=== PATIENT | female | born 2000 | race Hispanic/Latino ===

== ENCOUNTER 2024-09-16 22:55 | Emergency (ER) | payer SELFPAY, OTHER ==
--- OUTSIDE RECORDS SUMMARY | 2024-09-16 22:58 | XMS REPORT | Continuity of Care Document ---
Author Name Unknown Address [address] [facility] [address]. [address] [place] [address] [facility] thconnect Address [address] [facility]. [address] [place] [address] Care Team Providers Care Cigar Wrapper Tender Automatic Name Role Phone DR ZACH SIEGEL Primary Care Physician Unavailsarah GODINEZ, DR JUSTICE Attending Clinician Unavailable HERBERT, DR JUSTICE Attending Clinician Unavailable ARCHIE, DR JOSE Franco Attending Clinician Unavail able ARCHIE, DR JOSE Franco Attending Clinician Unavail able SHOSHANA QUESADA Attending Clinician Unavailable [facility] Attending Clinician Unavail able MARIAN, DR MURRAY Attending Clinician Unavailable NATALY, DR TARSHA DELATORRE Attending Clinician Unav luis e CARPENTER, DR HINES Attending Clinician Unavailable GIACOMO, DR PARK Attending Clinician Unavailable HERBERT, DR JUSTICE Admitting Clinician Unavailable ARCHIE, DR JOSE Franco Admitting Clinician Unavail able SHOSHANA QUESADA Admitting Clinician Unavailable [facility] Admitting Clinician Unavail able MARIAN, DR MURRAY Admitting Clinician Unavailable NATALY, DR TARSHA DELATORRE Admitting Clinician Unav luis e CARPENTER, DR HINES Admitting Clinician Unavailable GIACOMO, DR PARK Admitting Clinician Unavailable Payers Payer Name Policy Type Policy Number Effective Date Expirati on Date Source [id number] 2023 00:00:00 [id number] 2023 00:00:00 [place] [id number] 2014 00:00:00 Allergies, Adverse Reactions, Alerts Allergy Name Allergy Type Status Severity Reaction(s) Onset Date Inactive Date Treating Clinician Comments Source No Known Drug Allergie s DA Active [facility] Social History Smoking Status Start Date Stop Date Source Never Smoker [facility] Vital Signs Vital Name Observation Time Observation Value Comments S ource Height 2023-04-13 10:42:00 167.64 CM Weight 2023-04-13 10:42:00 80.6 KG Height 2023-05-02 20:35:00 170.18 CM Weight 2023-05-02 20:35:00 75 KG Height 2023-05-02 20:35:00 170.18 CM Weight 2023-05-02 20:35:00 75 KG Height 2023-04-13 10:42:00 167.64 CM Weight 2023-04-13 10:42:00 80.6 KG Height 2022-10-04 20:00:00 165.1 CM Weight 2022-10-04 20:00:00 68.94 KG Height 2022-10-04 20:00:00 165.1 CM Weight 2022-10-04 20:00:00 68.94 KG Height 2022-09-13 00:00:00 65 [in_i] [facility] BMI (Body Mass Index) 2022-09-13 00:00:00 26 kg/m2 [facility] BP Systolic 2022-09-13 00:00:00 115 mm[Hg] [facility] Body Weight 2022-09-13 00:00:00 2498 [oz_av] [facility] BP Diastolic 2022-09-13 00:00:00 71 mm[Hg] [facility] Height 2021-01-08 21:49:00 162.56 CM Weight 2021-01-08 21:49:00 71.98 KG Procedures Procedure Date / Time Performed Performing Clinicia n Source DELIVERY PRODUCTS OF CONCEPTION EXT 2023-04-13 00:00:00 [facility] REPAIR ANAL SPHINCTER OPEN APPROACH 2023-04-13 00:00:00 [facility] Plan of Care Planned Activity Planned Date Details Comments Source Diagnostic Test Pending 2022-09-13 00:00:00 beta -HCG, quantitative, serum or plasma [code = beta-HCG, quantitative, serum or plasma] [facility] Encounters Start Date/Time End Date/Time Encounter Type Admission Type Attending Clinicians Care Facility Care Department Encounter ID Source 2023-04-21 00:00:00 Inpatient RESHMA TORO [facility] [place] [id number] [facility] 2023-04-13 09:47:00 Inpatient RESHMA TORO CHUWAMEGAN [facility] [place] [id number] [facility] 2023-05-02 20:37:00 2023-05-02 22:32:00 Emergency E JOSE ALMANZA DAVID [facility] ECC [id number] [facility] 2023-05-02 20:37:00 2023-05-02 20:37:00 Emergency E [facility] [id number] [facility] 2023-04-13 09:47:00 2023-04-15 15:05:00 Inpatient RESHMA TORO CHUWAMEGAN [facility] [place] [id number] [facility] 2022-10-04 19:45:00 2022-10-04 22:18:00 Emergency E SHOSHANA QUESADA [facility] [id number] [facility] 2022-10-04 19:45:00 2022-10-04 22:18:00 Emergency E SHOSHANA QUESADA [facility] [id number] [facility] 2022-09-15 00:00:00 2022-09-15 00:00:00 [facility] [id number] [facility] 2022-09-13 19:43:00 2022-09-13 22:36:00 Emergency E TREVOR FONSECA [facility] [id number] [facility] 2022-09-13 00:00:00 2022-09-13 00:00:00 Outpatient [facility] In[facility] [id number] [facility] 2022-09-13 00:00:00 2022-09-13 00:00:00 KALPANA Evans: [address] [id number] , Ph. [facility] - [facility]_Need ines Office [id number] [facility] 2021-01-08 21:41:00 2021-01-08 22:06:00 Emergency E TARSHA INGRAM [facility] [id number] [facility] 2019-03-11 08:46:00 2019-03-11 23:59:00 Outpatient DONNY SMITH [facility] RAD [id number] [facility] 2019-01-29 09:29:00 2019-01-29 10:41:00 Emergency E XAVIER GOODEN [facility] [id number] [facility] Results Test Description Test Time Test Comments Results Result Co mments Source HEPATITIS C ANTIBODY *WW*2023-04-14 04:07:00* Test Item Value Reference Range Interpretation Comme nts HCAB (test code = HCAB) NON-REACTIVE NON-REACTIVE SARS-CoV (RAPID ANTIGEN) WW2023-04-13 12:08:00* Test Item Value Reference Range Interpretation Comme nts SARS-CoV (ANTIGEN) (test code = COVAG) NEGATIVE NEGATIVE COVID AG (test code = COVAGC) This test has been marketed under the FDA Emergency Use Authorization (EUA) to meet challenges of the COVID-19 pandemic. The validation standards normally enforced by the FDA and the [employer] of the [employer] [employer] (CAP) are more stringent than those required for this test. Therefore, the result should be interpreted with caution and close attention to other clinical and epidemiological data HIV *WW*2023-04-13 12:04:00* Test Item Value Reference Range Interpretation Comme nts HIV-1,2 Ab \T\ p24 Ag (test code = CHIV) NON-REACTIVE NON-REACTIVE SYPHILIS SCREENING WW2023-04-13 11:55:00* Test Item Value Reference Range Interpretation Comme nts T PALLIDUM AB (test code = SYPHINT) NON-REACTIVE NON-REACTIVE SYPHC (test code = SYPHC) RPR test has been updated to Treponemal Immunoassay. Interpretation of results is similar RUBELLA AB IGG WW2023-04-13 11:54:00* Test Item Value Reference Range Interpretation Comme nts RUB AB IGG INTERP (test code = RBABINT) IMMUNE NON-IMMUNE A HEPATITIS B SURFACE ANTIGEN 2023-04-13 11:51:00* Test Item Value Reference Range Interpretation Comme nts HBSAG (test code = WHBSAG) NON-REACTIVE NON-REACTIVE URINALYSIS WITH MICRO 2023-04-13 11:42:00* Test Item Value Reference Range Interpretation Comme nts COLOR (test code = COLU) YELLOW YELLOW CLARITY (test code = CLA) SLT HAZY CLEAR A GLUCOSE UR (test code = UA GLUCOSE) NEGATIVE NEGATIVE BILI UR (test code = BILE) NEGATIVE NEGATIVE KETONES UR (test code = YELENA) TRACE NEGATIVE A SP GRAVITY (test code = SPGR) 1.020 1.005-1.030 PH UR (test code = PH) 5.5 4.5-8.0 PROTEIN UR (test code = PU) TRACE NEGATIVE A UROBIL UR (test code = UROQ) 1.0 EU/dL 0.2-1.0 NITRITE UR (test code = NITRITE) NEGATIVE NEGATIVE BLOOD UR (test code = UA BLOOD) 1+ NEGATIVE A LEUK ES UR (test code = LEUK) 2+ NEGATIVE A WBC UR (test code = UWBC) 8 /HPF 0-5 H RBC UR (test code = URBC) 1 /HPF 0-2 EPITH UR (test code = UEPC) FEW /LPF FEW BACTERIA UR (test code = UBACT) FEW /HPF NONE A CAST UR (test code = CAST) /LPF NONE CRYSTAL UR (test code = CRYU) / LPF NONE MUCUS UR (test code = MUC) / HPF NONE AMORPH UR (test code = KYREE) / HPF NONE TRICH UR (test code = UTRICH) /HPF NONE YEAST UR (test code = UY) /HPF NONE SPERM UR (test code = USPERM) /HPF NONE FIBRINOGEN QUANTITATIVE 2023-04-13 11:41:00* Test Item Value Reference Range Interpretation Comme nts FIBRINOGEN (test code = FIB) 833 mg/dL 260-480 H BASIC METABOLIC PANEL 2023-04-13 11:34:00* Test Item Value Reference Range Interpretation Comme nts GLUCOSE (test code = 06D) 95 mg/dL 75-100 SODIUM (test code = 01A) 137 mmol/L 136-145 POTASSIUM (test code = 01B) 4.2 mmol/L 3.6-5.1 CHLORIDE (test code = 04A) 104 mmol/L 98-107 CO2 (test code = 02A) 21 mmol/L 20-31 ANION GAP (test code = ANG) 16.2 mmol/L BUN (test code = 05D) 8 mg/dL 9-23 L CREATININE (test code = 03E) 0.6 mg/dL 0.6-1.0 GFR (test code = GFR) 131 mL/min/1.73m\S\2 >=90 GFR (test code = GFRAA) 152 mL/min/1.73m\S\2 >=90 EGFR (test code = EGFR) eGFR BY CKD-EPI CALCULATION IS NOT RECOMMENDED FOR PATIENTS UNDER 18 YEARS OF AGE. BUN/CREA (test code = BCR) 13 12-20 CALCIUM (test code = 09D) 9.5 mg/dL 8.3-10.6 CBC (INCLUDES AUTOMATED DIFFERENTIAL)*[id number] 11:21:00* Test Item Value Reference Range Interpretation Comme nts WBC (test code = WBC) 11.5 10\S\3/uL 4.5-13.0 RBC (test code = RBC) 4.25 10\S\6/uL 4.30-5.70 L HGB (test code = HBG) 11.3 g/dL 12.0-15.5 L HCT (test code = HCT) 36.2 % 35.0-44.0 MCV (test code = MCV) 85.2 fL 81.0-99.0 MCH (test code = MCH) 26.6 pg 27.0-31.0 L MCHC (test code = MCHC) 31.2 g/dL 32.0-36.0 L RDW (test code = RDW) 15.4 % 11.5-14.5 H PLT (test code = PLT) 179 10\S\3/uL 130-400 MPV (test code = MPV) 12.8 fL 9.4-12.4 H NEUTROP # (test code = NE#) 9.9 10\S\3/uL 1.6-8.0 H LYMPH # (test code = LY#) 0.9 10\S\3/uL 1.1-3.5 L MONOCYTE # (test code = MO#) 0.6 10\S\3/uL 0.0-1.1 EOSINOPH # (test code = EO#) 0.0 10\S\3/uL 0.0-0.7 BASOPHIL # (test code = BA#) 0.0 10\S\3/uL 0.0-0.3 IG # (test code = IG#) 0.04 10\S\3/uL 0.00-0.06 NRBC # (test code = NRBC#) 0.00 10\S\3/uL 0.00-0.01 NEUTROPH % (test code = NE%) 86.1 % 35.0-73.0 H LYMPH % (test code = LY%) 7.9 % 20.0-55.0 L MONO % (test code = MO%) 5.2 % 2.5-10.0 EOSINOPH % (test code = EO%) 0.2 % 0.0-5.0 BASOPHIL % (test code = BA%) 0.3 % 0.0-2.0 IG % (test code = IG%) 0.3 % 0.0-0.8 NRBC% (test code = NRBC%) 0.0 % 0.0-0.2 MANDIFF (test code = WMDIFF) NO NO RBC MORPH (test code = WRBCMOR) NORMAL U/S <14 [id number] 22:04:54 [facility] CENTERName: HARVINDER SALGADO : 2000 Sex: FTRANSABDOMINAL PELVIC ULTRASOUNDLOCATION: [id number]: Abnormal vaginal bleeding.TECHNIQUE: Transabdominal sonography of the pelvis was performed at 9:56 PM. Correlation is made to a prior exam from September 13, 2022.FINDINGS: The urinary bladder is unremarkable. The single live intrauterine fetus is again noted with a heart rate of 185 bpm. Estimated gestational age by crown-rump length measurement is 11 weeks 1 day. Now identified is a subchorionic hemorrhage that measures 3 x 1 cm. It causes no obviouscomplication at this time but close surveillance is recommended. The gestation and uterus are otherwise unremarkable.Neither ovary is identified due to overlying bowel gas shadowing. No obvious free fluid is seen in the pelvis.IMPRESSION: Single live intrauterine fetus at 11 weeks 1 day gestation. Subchorionic hemorrhage is now present without obvious compromise to the gestation at this time but close surveillance is recommended. No other obvious acute findings are seen.Electronically signed by: Rome Dykes MD 10/04/2022 10:04 PM CDT [id number] 22:03:00* Test Item Value Reference Range Interpretation Comme nts COLOR (test code = COLU) YELLOW YELLOW CLARITY (test code = CLA) CLEAR CLEAR GLUCOSE UR (test code = UA GLUCOSE) NEGATIVE NEGATIVE BILI UR (test code = BILE) NEGATIVE NEGATIVE KETONES UR (test code = YELENA) NEGATIVE NEGATIVE SP GRAVITY (test code = SPGR) 1.008 1.005-1.030 PH UR (test code = PH) 6.0 4.5-8.0 PROTEIN UR (test code = PU) NEGATIVE NEGATIVE UROBIL UR (test code = UROQ) 0.2 EU/dL 0.2-1.0 NITRITE UR (test code = NITRITE) NEGATIVE NEGATIVE BLOOD UR (test code = UA BLOOD) NEGATIVE NEGATIVE LEUK ES UR (test code = LEUK) NEGATIVE NEGATIVE URINE [id number] 22:01:00* Test Item Value Reference Range Interpretation Comme nts PREG UR (test code = PGU) POSITIVE NEGATIVE A BETA HCG QUANTITATIVE [id number] 21:50:00* Test Item Value Reference Range Interpretation Comme nts BHCG QUANT (test code = A17) 183877.60 mIU/mL BHCGQ (test code = BHCQ) QUANTITATIVE BHCG RESULT INTERPRETATION --- APPROXIMATE APPROXIMATE GESTATIONAL AGE HCG RANGE (WEEKS) (mIU/mL) - 0.2 - 1 5 - 50 1 - 2 50 - 500 2 - 3 100 - 5,000 3 - 4 500 - 10,000 4 - 5 1,000 - 50,000 5 - 6 10,000 - 100,000 6 - 8 15,000 - 200,000 8 - 12 10,000 - 100,000 --- PRO TIME AND [id number] 21:06:00* Test Item Value Reference Range Interpretation [facility] PT (test code = TT) 11.0 s 9.8-13.6 INR (test code = INR) 1.0 INRH (test code = INRH) SUGGESTED THERAPEUTIC RANGE FOR INR: 2.5 - 3.5 For Patients with Prosthetic Valves or Patients with recurrent Thromboembolic Events 2.0 - 3.0 For Most Other Applications PTT (test code = PTT) 29.2 s 20.2-38.0 PTTH (test code = PTTH) To monitor the effectiveness of heparin, we offer the Anti-Xa (Heparin Assay). It can be used for either unfractionated or LMW Heparin. Order Code is ANTI-XA COMPREHENSIVE METABOLIC [id number] 21:06:00* Test Item Value Reference Range Interpretation Comme [facility] GLUCOSE (test code = 06D) 79 mg/dL 75-100 SODIUM (test code = 01A) 137 mmol/L 136-145 POTASSIUM (test code = 01B) 3.7 mmol/L 3.6-5.1 CHLORIDE (test code = 04A) 105 mmol/L 98-107 CO2 (test code = 02A) 24 mmol/L 20-31 ANION GAP (test code = ANG) 11.8 mmol/L BUN (test code = 05D) 7 mg/dL 9-23 L CREATININE (test code = 03E) 0.6 mg/dL 0.6-1.0 GFR (test code = GFR) 135 mL/min/1.73m\S\2 See_Comment [Automated message] The system which generated this result transmitted reference range: >=90. The reference range was not used to interpret this result as normal/abnormal. GFR (test code = GFRAA) 157 mL/min/1.73m\S\2 See_Comment [Automated message] The system which generated this result transmitted reference range: >=90. The reference range was not used to interpret this result as normal/abnormal. EGFR (test code = EGFR) eGFR BY CKD-EPI CALCULATION IS NOT RECOMMENDED FOR PATIENTS UNDER 18 YEARS OF AGE. BUN/CREA (test code = BCR) 13 12-20 CALCIUM (test code = 09D) 9.4 mg/dL 8.3-10.6 BILI TOTAL (test code = 11A) 0.2 mg/dL 0.2-1.0 PROTEIN (test code = 07D) 7.2 g/dL 5.7-8.2 ALBUMIN (test code = 08D) 4.7 g/dL 3.2-4.8 GLOBULIN (test code = GLB) 2.5 g/dL 1.5-3.8 ALB/GLOB (test code = AGRR) 1.9 1.0-2.6 ALK PHOS (test code = 35A) 53 IU/L 46-116 AST (test code = 30A) 15 IU/L See_Comment [Automated message] The system which generated this result transmitted reference range: <=33. The reference range was not used to interpret this result as normal/abnormal. ALT (test code = 31A) 9 IU/L 10-49 L [id number] 21:06:00* Test Item Value Reference Range Interpretation Comme nts MAGNESIUM (test code = 48A) 2.1 mg/dL 1.6-2.6 CBC (INCLUDES AUTOMATED DIFFERENTIAL)2022-10-04 20:55:00* Test Item Value Reference Range Interpretation Comme nts WBC (test code = WBC) 7.7 10\S\3/uL 4.5-13.0 RBC (test code = RBC) 4.30 10\S\6/uL 4.30-5.70 HGB (test code = HBG) 12.8 g/dL 12.0-15.5 HCT (test code = HCT) 37.3 % 35.0-44.0 MCV (test code = MCV) 86.7 fL 81.0-99.0 MCH (test code = MCH) 29.8 pg 27.0-31.0 MCHC (test code = MCHC) 34.3 g/dL 32.0-36.0 RDW (test code = RDW) 13.7 % 11.5-14.5 PLT (test code = PLT) 233 10\S\3/uL 130-400 MPV (test code = MPV) 11.1 fL 9.4-12.4 NEUTROP # (test code = NE#) 4.9 10\S\3/uL 1.6-8.0 LYMPH # (test code = LY#) 1.9 10\S\3/uL 1.1-3.5 MONOCYTE # (test code = MO#) 0.6 10\S\3/uL 0.0-1.1 EOSINOPH # (test code = EO#) 0.2 10\S\3/uL 0.0-0.7 BASOPHIL # (test code = BA#) 0.0 10\S\3/uL 0.0-0.3 IG # (test code = IG#) 0.02 10\S\3/uL 0.00-0.06 NRBC # (test code = NRBC#) 0.00 10\S\3/uL 0.00-0.01 NEUTROPH % (test code = NE%) 63.3 % 35.0-73.0 LYMPH % (test code = LY%) 25.1 % 20.0-55.0 MONO % (test code = MO%) 7.9 % 2.5-10.0 EOSINOPH % (test code = EO%) 2.9 % 0.0-5.0 BASOPHIL % (test code = BA%) 0.5 % 0.0-2.0 IG % (test code = IG%) 0.3 % 0.0-0.8 NRBC% (test code = NRBC%) 0.0 % 0.0-0.2 MANDIFF (test code = MDIFF) NO RBC MORPH (test code = RBCMOR) NORMAL BETA HCG QUANTITATIVE [id number] 23:27:00* Test Item Value Reference Range Interpretation Comme nts BHCG QUANT (test code = A17) >841856.00 mIU/mL BHCGQ (test code = BHCQ) QUANTITATIVE BHCG RESULT INTERPRETATION --- APPROXIMATE APPROXIMATE GESTATIONAL AGE HCG RANGE (WEEKS) (mIU/mL) - 0.2 - 1 5 - 50 1 - 2 50 - 500 2 - 3 100 - 5,000 3 - 4 500 - 10,000 4 - 5 1,000 - 50,000 5 - 6 10,000 - 100,000 6 - 8 15,000 - 200,000 8 - 12 10,000 - 100,000 --- U/S <14 [id number] 22:18:58 [facility] CENTERName: HARVINDER SALGADO : 2000 Sex: FLocation code: [id number] SonogramIndication: Abnormal vaginal bleeding.Comparison: NoneTechnical factors: Long and short axis transpelvic and transvaginal images were obtained. Findings:Uterus:A live intrauterine gestation is identified with crown rump length of 1.5 cm.The yolk sac is seen and appears normal.No subchorionic hemorrhage is present. Gestational age by ultrasound criteria is 7 weeks 6 days.Amniotic fluid is normal. heart rate is 174 bpm.Right ovary is not visualizedLeft ovary: 2.5 x 1.6 x 1.4 cm.Free fluid: NoneUrinary bladder: Unremarkable.Impression: 1. Single live intrauterine of approximately 7 weeks 6 days gestational age. No complication is seen.2. Estimated date of delivery: 04/21/2023.Electronically signed by: Pepito Paniagua MD 09/13/2022 10:18 PM [facility] [id number] METABOLIC [id number] 21:13:00* Test Item Value Reference Range Interpretation Comme nts GLUCOSE (test code = 06D) 87 mg/dL 75-100 SODIUM (test code = 01A) 140 mmol/L 136-145 POTASSIUM (test code = 01B) 3.6 mmol/L 3.6-5.1 CHLORIDE (test code = 04A) 108 mmol/L 98-107 H CO2 (test code = 02A) 24 mmol/L 20-31 ANION GAP (test code = ANG) 11.6 mmol/L BUN (test code = 05D) 8 mg/dL 9-23 L CREATININE (test code = 03E) 0.5 mg/dL 0.6-1.0 L GFR (test code = GFR) 140 mL/min/1.73m\S\2 >=90 GFR (test code = GFRAA) 162 mL/min/1.73m\S\2 >=90 EGFR (test code = EGFR) eGFR BY CKD-EPI CALCULATION IS NOT RECOMMENDED FOR PATIENTS UNDER 18 YEARS OF AGE. BUN/CREA (test code = BCR) 16 12-20 CALCIUM (test code = 09D) 8.6 mg/dL 8.3-10.6 BILI TOTAL (test code = 11A) 0.3 mg/dL 0.2-1.0 PROTEIN (test code = 07D) 6.6 g/dL 5.7-8.2 ALBUMIN (test code = 08D) 4.3 g/dL 3.2-4.8 GLOBULIN (test code = GLB) 2.3 g/dL 1.5-3.8 ALB/GLOB (test code = AGRR) 1.9 1.0-2.6 ALK PHOS (test code = 35A) 56 IU/L 46-116 AST (test code = 30A) 10 IU/L <=33 ALT (test code = 31A) <7 IU/L 10-49 L URINALYSIS WITH [id number] 21:07:00* Test Item Value Reference Range Interpretation Comme nts COLOR (test code = COLU) YELLOW YELLOW CLARITY (test code = CLA) CLEAR CLEAR GLUCOSE UR (test code = UA GLUCOSE) NEGATIVE NEGATIVE BILI UR (test code = BILE) NEGATIVE NEGATIVE KETONES UR (test code = YELENA) NEGATIVE NEGATIVE SP GRAVITY (test code = SPGR) 1.025 1.005-1.030 PH UR (test code = PH) 6.5 4.5-8.0 PROTEIN UR (test code = PU) TRACE NEGATIVE A UROBIL UR (test code = UROQ) 1.0 EU/dL 0.2-1.0 NITRITE UR (test code = NITRITE) NEGATIVE NEGATIVE BLOOD UR (test code = UA BLOOD) 3+ NEGATIVE A LEUK ES UR (test code = LEUK) 2+ NEGATIVE A WBC UR (test code = UWBC) 5 /HPF 0-5 RBC UR (test code = URBC) 3 /HPF 0-2 H EPITH UR (test code = UEPC) FEW /LPF FEW BACTERIA UR (test code = UBACT) NONE /HPF NONE CAST UR (test code = CAST) /LPF NONE CRYSTAL UR (test code = CRYU) / LPF NONE MUCUS UR (test code = MUC) / HPF NONE AMORPH UR (test code = KYREE) FEW / HPF NONE A TRICH UR (test code = UTRICH) /HPF NONE YEAST UR (test code = UY) /HPF NONE SPERM UR (test code = USPERM) /HPF NONE PRO TIME AND [id number] 21:04:00* Test Item Value Reference Range Interpretation Comme nts PT (test code = TT) 12.5 s 9.8-13.6 INR (test code = INR) 1.1 INRH (test code = INRH) SUGGESTED THERAPEUTIC RANGE FOR INR: 2.5 - 3.5 For Patients with Prosthetic Valves or Patients with recurrent Thromboembolic Events 2.0 - 3.0 For Most Other Applications PTT (test code = PTT) 29.6 s 20.2-38.0 PTTH (test code = PTTH) To monitor the effectiveness of heparin, we offer the Anti-Xa (Heparin Assay). It can be used for either unfractionated or LMW Heparin. Order Code is ANTI-XA CBC (INCLUDES AUTOMATED DIFFERENTIAL)2022-09-13 20:54:00* Test Item Value Reference Range Interpretation Comme nts WBC (test code = WBC) 9.5 10\S\3/uL 4.5-13.0 RBC (test code = RBC) 4.16 10\S\6/uL 4.30-5.70 L HGB (test code = HBG) 12.0 g/dL 12.0-15.5 HCT (test code = HCT) 35.8 % 35.0-44.0 MCV (test code = MCV) 86.1 fL 81.0-99.0 MCH (test code = MCH) 28.8 pg 27.0-31.0 MCHC (test code = MCHC) 33.5 g/dL 32.0-36.0 RDW (test code = RDW) 13.6 % 11.5-14.5 PLT (test code = PLT) 259 10\S\3/uL 130-400 MPV (test code = MPV) 11.2 fL 9.4-12.4 NEUTROP # (test code = NE#) 6.9 10\S\3/uL 1.6-8.0 LYMPH # (test code = LY#) 1.5 10\S\3/uL 1.1-3.5 MONOCYTE # (test code = MO#) 0.9 10\S\3/uL 0.0-1.1 EOSINOPH # (test code = EO#) 0.1 10\S\3/uL 0.0-0.7 BASOPHIL # (test code = BA#) 0.0 10\S\3/uL 0.0-0.3 IG # (test code = IG#) 0.02 10\S\3/uL 0.00-0.06 NRBC # (test code = NRBC#) 0.00 10\S\3/uL 0.00-0.01 NEUTROPH % (test code = NE%) 72.9 % 35.0-73.0 LYMPH % (test code = LY%) 16.2 % 20.0-55.0 L MONO % (test code = MO%) 9.2 % 2.5-10.0 EOSINOPH % (test code = EO%) 1.1 % 0.0-5.0 BASOPHIL % (test code = BA%) 0.4 % 0.0-2.0 IG % (test code = IG%) 0.2 % 0.0-0.8 NRBC% (test code = NRBC%) 0.0 % 0.0-0.2 MANDIFF (test code = MDIFF) NO RBC MORPH (test code = RBCMOR) NORMAL URINE [id number] 20:51:00* Test Item Value Reference Range Interpretation Comme nts PREG UR (test code = PGU) POSITIVE NEGATIVE A CTA CORONARY W/CALCIUM SCORE WITH [id number] 15:17:03Coronary CTALocation code:[id number] History: Dyspnea, Chest painTECHNIQUE: The patient arrived fasting with a heart rate approximately 50 bpmat the time of the study. 70 ml of Omnipaque 350 non-ionic contrast was injected at 5 ml/sec followed by35 ml of normal saline. The CT coronary angiogram wasperformed on a Siemens 64- slice CT scanner withheart rate gating. All data was reconstructed in varying points in the RRinterval and then sent to an AW work station for further post processing. An 18gauge IV catheter was placed in the left antecubital fossa. OVERALL STUDY QUALITY: Excellent with vessels visualized to the crux of theheart. AORTA/VALVES: The ascending and descending aorta are normal in size with nosignificant atherosclerosis. No abnormal calcifications are seen within theaortic, mitral or tricuspid valves. MYOCARDIUM: Appears of normal thickness with no evidence for scar or aneurysm.CHAMBERS/PULMONARY VESSELS: The left ventricle has a normal size andconfiguration. The left atrium, left atrial appendage, pulmonary arteries andveins appear normal. There is no evidence for obvious embolism. Left ventricular end diastolic volume: 100.97Left ventricular end systolic volume: 35.92Ejection fraction: 64.4%PERICARDIUM: Has a normal CT appearance. CORONARY ARTERIES:LM: NormalLAD:NormalLCX: NormalRCA: Normal. Predominant supply to the posterior descending artery.CALCIUM SCORE:Left Main: 0.00LAD: 0.00Circumflex:0.00 RCA: 0.00MISCELLANEOUS: The lungs are clear. No pulmonary embolus is seen. The bonesand soft tissues appear normal. IMPRESSION: 1. Normal CTA with no coronary anomaly, significant atherosclerosis, orstenosis.2. No acute intrathoracic abnormality.COMPREHENSIVE METABOLIC RIGGS 2019-03-11 10:04:00* Test Item Value Reference Range Interpretation Comme nts GLUCOSE (test code = 06D) 92 mg/dL 75-100 SODIUM (test code = 01A) 145 mmol/L 136-145 POTASSIUM (test code = 01B) 3.8 mmol/L 3.6-5.1 CHLORIDE (test code = 04A) 109 mmol/L 98-107 H CO2 (test code = 02A) 27 mmol/L 22-32 ANION GAP (test code = ANG) 12.8 mmol/L BUN (test code = 05D) 15 mg/dL 7-18 CREATININE (test code = 03E) 0.7 mg/dL 0.4-1.1 BUN/CREA (test code = BCR) 22 12-20 H CALCIUM (test code = 09D) 9.4 mg/dL 8.3-9.5 BILI TOTAL (test code = 11A) 0.3 mg/dL 0.2-1.0 PROTEIN (test code = 07D) 7.8 g/dL 6.0-8.0 ALBUMIN (test code = 08D) 4.3 g/dL 3.5-4.8 GLOBULIN (test code = GLB) 3.5 g/dL 1.5-3.8 ALB/GLOB (test code = AGRR) 1.2 1.0-2.6 ALK PHOS (test code = 35A) 79 IU/L 42-121 AST (test code = 30A) 13 IU/L <=42 ALT (test code = 31A) 15 IU/L <=78 SERUM [id number] 09:55:00* Test Item Value Reference Range Interpretation Comme nts PREG SRM (test code = PGS) NEGATIVE NEGATIVE CBC (INCLUDES AUTOMATED DIFFERENTIAL)2019-03-11 09:45:00* Test Item Value Reference Range Interpretation Comme nts WBC (test code = WBC) 6.2 10\S\3/uL 4.5-13.0 RBC (test code = RBC) 4.11 10\S\6/uL 4.10-5.20 HGB (test code = HBG) 10.8 g/dL 11.5-15.5 L HCT (test code = HCT) 33.7 % 35.0-45.0 L MCV (test code = MCV) 82.0 fL 77.0-95.0 MCH (test code = MCH) 26.3 pg 25.0-33.0 MCHC (test code = MCHC) 32.0 g/dL 31.0-37.0 RDW (test code = RDW) 15.3 % 11.5-14.5 H PLT (test code = PLT) 273 10\S\3/uL 130-400 MPV (test code = MPV) 10.9 fL 9.4-12.4 NEUTROP # (test code = NE#) 4.0 10\S\3/uL 1.6-8.0 LYMPH # (test code = LY#) 1.4 10\S\3/uL 1.1-3.5 MONOCYTE # (test code = MO#) 0.5 10\S\3/uL 0.0-1.1 EOSINOPH # (test code = EO#) 0.2 10\S\3/uL 0.0-0.7 BASOPHIL # (test code = BA#) 0.1 10\S\3/uL 0.0-0.3 IG # (test code = IG#) 0.01 10\S\3/uL 0.00-0.06 NRBC # (test code = NRBC#) 0.00 10\S\3/uL 0.00-0.01 NEUTROPH % (test code = NE%) 64.8 % 35.0-73.0 LYMPH % (test code = LY%) 21.9 % 20.0-55.0 MONO % (test code = MO%) 8.2 % 2.5-10.0 EOSINOPH % (test code = EO%) 3.9 % 0.0-5.0 BASOPHIL % (test code = BA%) 1.0 % 0.0-2.0 IG % (test code = IG%) 0.2 % 0.0-0.8 NRBC% (test code = NRBC%) 0.0 % 0.0-0.2 MANDIFF (test code = MDIFF) NO NO RBC MORPH (test code = RBCMOR) NORMAL THYROID PANEL/SCREEN (TSH)2019-01-29 10:23:00* Test Item Value Reference Range Interpretation Comme nts TSH (test code = A57) 1.210 uIU/mL 0.358-3.740 TROPONIN [id number] 10:13:00* Test Item Value Reference Range Interpretation Comme nts TROPONIN I (test code = A84) <0.015 ng/mL 0.000-0.045 BASIC METABOLIC [id number] 10:08:00* Test Item Value Reference Range Interpretation Comme nts GLUCOSE (test code = 06D) 94 mg/dL 75-100 SODIUM (test code = 01A) 143 mmol/L 136-145 POTASSIUM (test code = 01B) 3.7 mmol/L 3.6-5.1 CHLORIDE (test code = 04A) 110 mmol/L 98-107 H CO2 (test code = 02A) 26 mmol/L 22-32 ANION GAP (test code = ANG) 10.7 mmol/L BUN (test code = 05D) 9 mg/dL 7-18 CREATININE (test code = 03E) 0.6 mg/dL 0.4-1.1 BUN/CREA (test code = BCR) 15 12-20 CALCIUM (test code = 09D) 9.1 mg/dL 8.3-9.5 SERUM [id number] 10:00:00* Test Item Value Reference Range Interpretation Comme nts PREG SRM (test code = PGS) NEGATIVE NEGATIVE CBC (INCLUDES AUTOMATED DIFFERENTIAL)2019-01-29 09:53:00* Test Item Value Reference Range Interpretation Comme nts WBC (test code = WBC) 5.0 10\S\3/uL 4.5-13.0 RBC (test code = RBC) 4.34 10\S\6/uL 4.10-5.20 HGB (test code = HBG) 11.5 g/dL 11.5-15.5 HCT (test code = HCT) 36.4 % 35.0-45.0 MCV (test code = MCV) 83.9 fL 77.0-95.0 MCH (test code = MCH) 26.5 pg 25.0-33.0 MCHC (test code = MCHC) 31.6 g/dL 31.0-37.0 RDW (test code = RDW) 15.0 % 11.5-14.5 H PLT (test code = PLT) 321 10\S\3/uL 130-400 MPV (test code = MPV) 10.5 fL 9.4-12.4 NEUTROP # (test code = NE#) 2.9 10\S\3/uL 1.6-8.0 LYMPH # (test code = LY#) 1.3 10\S\3/uL 1.1-3.5 MONOCYTE # (test code = MO#) 0.4 10\S\3/uL 0.0-1.1 EOSINOPH # (test code = EO#) 0.4 10\S\3/uL 0.0-0.7 BASOPHIL # (test code = BA#) 0.0 10\S\3/uL 0.0-0.3 IG # (test code = IG#) 0.00 10\S\3/uL 0.00-0.06 NRBC # (test code = NRBC#) 0.00 10\S\3/uL 0.00-0.01 NEUTROPH % (test code = NE%) 57.2 % 35.0-73.0 LYMPH % (test code = LY%) 26.6 % 20.0-55.0 MONO % (test code = MO%) 8.0 % 2.5-10.0 EOSINOPH % (test code = EO%) 7.4 % 0.0-5.0 H BASOPHIL % (test code = BA%) 0.8 % 0.0-2.0 IG % (test code = IG%) 0.0 % 0.0-0.8 NRBC% (test code = NRBC%) 0.0 % 0.0-0.2 MANDIFF (test code = MDIFF) NO NO RBC MORPH (test code = RBCMOR) NORMAL
[2024-09-16] MEDS ORDERED: ONDANSETRON 4 MG/2 ML VIAL ONE (23:14)
[2024-09-16] MEDS ORDERED: NA CHLORIDE 0.9% 1,000 ML ONE (23:15)
[2024-09-16] MEDS ORDERED: MORPHINE 4 MG/ML SYR ONE (23:15)
[2024-09-16 23:33] LABS: Anion Gap 8.6 mEq/L (5.0-15.0); Potassium 3.6 mEq/L (3.5-5.1)
[2024-09-16 23:38] LABS: Absolute Basophils 0.1 K/uL (0-0.5); Absolute Eosinophils 0.2 K/uL (0-0.5); Absolute Lymphocytes (CBC) 1.5 K/uL (0.7-4.9); Absolute Monocytes 0.7 K/uL (0.1-1.3); Absolute Neutrophil 9.8 K/uL (1.8-8.0); Basophils % 0.4 % (0-1.3); Eosinophils % 1.5 % (0-4.4); Hematocrit 34.7 % (36.0-45.0); Hemoglobin 11.5 g/dL (12.0-15.0); Lymphocytes % 12.2 % (15.3-44.8); MCH 27.5 pg (27.0-35.0); MCHC 33.2 g/dL (32.0-36.0); MCV 82.9 fL (80-100); MPV 9.2 fL (7.6-11.3); Monocytes % 5.8 % (3.3-12.3); Neutrophils % 80.1 % (41.7-73.7); Platelets 296 thou/uL (152-406); RBC Red Blood Cell Count 4.19 M/uL (3.86-4.86); Red Cell Distribution Width 14.3 % (12.1-15.2)
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
[2024-09-17 01:15] VITALS: TEMP 97.2; O2SAT 100
[2024-09-17 01:28] VITALS: BP 142/95
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
== END 2024-09-17 01:06 | disposition home or self-care (01) ==
LOC: ER 22:55
DX: S00.81XA Abrasion of other part of head, initial encounter (principal); S63.501A Unspecified sprain of right wrist, initial encounter; S60.811A Abrasion of right wrist, initial encounter; S30.811A Abrasion of abdominal wall, initial encounter; S20.219A Contusion of unspecified front wall of thorax, initial encounter; V49.49XA Driver injured in collision with other motor vehicles in traffic accident, initial encounter
CPT/HCPCS: 36415; 70450; 71260; 72125; 74177; 80048; 84703; 85025; 86850; 86900; 86901; J2405; J7030; Q9967